=== PATIENT | male | born 1980 | race Caucasian/White ===

== ENCOUNTER 2019-03-14 15:02 | Emergency (ER) | payer BC ==
[2019-03-14] MEDS ORDERED: Fluorescein Opthalmic Strip ONE (15:14)
[2019-03-14] MEDS ORDERED: Proparacaine 0.5% Opth 15 ML BOT ONE (15:14)
== END 2019-03-14 15:26 | disposition home or self-care (01) ==
LOC: ERS 15:02
DX: S05.02XA Injury of conjunctiva and corneal abrasion without foreign body, left eye, initial encounter (principal); H20.9 Unspecified iridocyclitis; Z87.891 Personal history of nicotine dependence; W22.8XXA Striking against or struck by other objects, initial encounter; Y93.67 Activity, basketball; Y99.8 Other external cause status
CPT/HCPCS: 99283